=== PATIENT | female | born 1995 | race African-American/Black ===

== ENCOUNTER 2021-01-18 15:44 | Emergency (ER) | payer MEDICAID, SELFPAY ==
--- NOTE | 2021-01-18 15:46 | ED.ABDPAIN ---
HPI - Abdominal Pain General Chief Complaint: Abdominal Pain Stated Complaint: Abdominal pain on both sides Time Seen by Provider: 01/18/21 16:17 Source: patient and RN notes reviewed Mode of arrival: ambulatory Limitations: no limitations History of Present Illness HPI narrative: 26-year-old female presents concern for abdominal pain for 1 week. She reports a history of type II diabetes, ADHD, depression. She reports abdominal pain approximately 1 week, she reports right upper abdominal pain and bilateral lower quadrant abdominal pain. She reports intermittent diarrhea. Reports her blood sugars have been running high. She reports her diabetes is not well controlled. She denies nausea, vomiting, decreased appetite. Denies fever, body aches, chills, sweats. Denies rhinorrhea, nasal congestion, sore throat, cough. Reports she has an IUD, denies chance of . Denies dysuria, frequency, urgency, hematuria. Reports abdominal pain is a 4/10. She denies relieving or exacerbating factors. Reports she feels the strings of her IUD. MD elicited complaint: abdominal pain Related Data Home Medications Medication Instructions Recorded Confirmed aripiprazole [Abilify] 10 mg PO DAILY 01/18/21 01/18/21 metformin 1,000 mg PO BID 01/18/21 01/18/21 Allergies Allergy/AdvReac Type Severity Reaction Status Date / Time No Known Allergies Allergy Verified 01/18/21 15:57 Review of Systems Review of Systems: CONSTITUTIONAL: Denies malaise, chills, sweats, or fever. ENT: Denies rhinorrhea, congestion, sinus pain, otalgia or sore throat. CARDIOVASCULAR: Denies chest pain, palpitations, or edema. RESPIRATORY: Denies cough or dyspnea. GASTROINTESTINAL: Reports right upper quadrant, bilateral lower quadrant abdominal pain, diarrhea. Denies nausea, vomiting, bloody, or mucous stools. GENITOURINARY: Denies dysuria or hematuria. SKIN: Denies rash or itching. MUSCULOSKELETAL: Denies back pain, joint pain, or myalgia. NEUROLOGIC: Denies numbness, weakness, or headache. All systems reviewed & are unremarkable except as noted in HPI and below PMFSH Past Medical History Medical History (Updated 01/18/21 @ 16:42 by Yolanda Harris NP) ADHD Depression Comments At time of signature, agree with nursing past medical, surgical, social and family history. There is no relevant family history pertinent to the presenting complaint Exam Narrative: GENERAL: Well-appearing, well-nourished, and in no acute distress. HEAD: Normocephalic, atraumatic. EYES: PERRLA, conjunctivae clear, and EOMI. ENT: Nares clear. Mucous membranes moist. NECK: Supple. No lymphadenopathy CHEST: Speaks in full sentences. Clear to auscultation, breath sounds. No respiratory distress. HEART: Regular rate and rhythm. ABDOMEN: Bilateral lower quadrant tenderness. Soft, obese, nondistended. No guarding, rebound tenderness, or rigid. No pulsatilla masses. Bowel sounds present in all four quadrants. No organomegaly. Negative Washburn?s sign. No periumbilical tenderness. No Supra public tenderness or distension. No scars or surface trauma, stretch srinivasan noted. SKIN: Warm, dry, no rash. NEURO: Alert and oriented x3. PSYCH: Normal mood and affect Course Course Emergency Course: Patient is aware of the diagnostic capability at [facility]. Patient refuses transfer to emergency department at this time. Anticipatory guidance given. Patient agrees to follow-up as directed and is aware of reasons to seek care at the emergency department. Portions of this record may have been created with voice recognition software Vital Signs Vital signs: Vital Signs Temperature 99.4 F 01/18/21 15:55 Pulse Rate 113 H 01/18/21 15:55 Respiratory Rate 16 01/18/21 15:55 Blood Pressure 129/74 01/18/21 15:55 Pulse Oximetry 99 01/18/21 15:55 Temperature 99.4 F 01/18/21 15:55 Pulse Rate 113 H 01/18/21 15:55 Respiratory Rate 16 01/18/21 15:55 Blood Pressure 1
[2021-01-18 15:55] VITALS: BP 129/74; PULSE 113; RESP 16; TEMP 37.4; O2SAT 99
[2021-01-19 19:52] LABS: SARS-CoV-2 RNA PCR Negative
== END 2021-01-18 16:46 | disposition home or self-care (01) ==
PROVIDERS: Emergency Provider Nurse Practitioner
DX: R19.7 Diarrhea, unspecified (principal); E11.9 Type 2 diabetes mellitus without complications; Z79.84 Long term (current) use of oral hypoglycemic drugs; Z20.822 Contact with and (suspected) exposure to COVID-19
CPT/HCPCS: 81003; 81025; 87426; 99213; C9803; G0463; U0003; U0005

== ENCOUNTER 2021-10-28 08:38 | Emergency (ER) | payer BC, SELFPAY ==
[2021-10-28 08:48] VITALS: BP 138/68; PULSE 112; RESP 18; TEMP 37.2; O2SAT 99
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
[2021-10-28] MEDS: TETANUS,DIPHTHERIA,AC PERTUSSIS ADULT (0.5 ML) BOOSTRIX IM (09:24)
== END 2021-10-28 09:40 | disposition home or self-care (01) ==
PROVIDERS: Emergency Provider Nurse Practitioner; PCP Nurse Practitioner Family
DX: S01.531A Puncture wound without foreign body of lip, initial encounter (principal); V68.6XXA Passenger in heavy transport vehicle injured in noncollision transport accident in traffic accident, initial encounter; Z23 Encounter for immunization; E11.9 Type 2 diabetes mellitus without complications; Z79.84 Long term (current) use of oral hypoglycemic drugs; F32.A Depression, unspecified
CPT/HCPCS: 90471; 90715; 99212; G0463

== ENCOUNTER 2022-01-30 09:49 | Emergency (ER) | payer BC, SELFPAY ==
[2022-01-30 09:54] VITALS: BP 127/65; PULSE 94; RESP 16; TEMP 37; O2SAT 100
--- NOTE | 2022-01-30 09:55 | ED.URI ---
HPI - URI/Sore Throat General Chief Complaint: Upper Respiratory Infection Stated Complaint: sore throat Time Seen by Provider: 01/30/22 09:56 Source: patient and RN notes reviewed History of Present Illness HPI Narrative: Patient is a 27-year-old female who presents the urgent care with complaints of a sore throat and runny nose that started yesterday. Patient states her fianc? was diagnosed with strep throat 2 days ago. Patient denies of any fever, nausea, vomiting. No other acute complaints. No acute distress noted. Patient aware of the plan of care. Some parts of this dictation were generated by voice recognition software and may contain typographical and/or grammatical inaccuracies. Related Data Home Medications Medication Instructions Recorded Confirmed aripiprazole 10 mg tablet (Abilify) 10 mg PO DAILY 01/18/21 10/28/21 sertraline 25 mg tablet 25 mg PO DAILY 01/30/22 01/30/22 Allergies Allergy/AdvReac Type Severity Reaction Status Date / Time No Known Allergies Allergy Verified 01/30/22 10:00 Review of Systems Review of Systems: CONSTITUTIONAL: Denies fever, chills, or sweats. EYES: Denies visual changes, redness, or discharge. ENT: Reports of rhinorrhea and sore throat CARDIOVASCULAR: Denies chest pain, palpitations, or edema. RESPIRATORY: Denies cough or dyspnea. GASTROINTESTINAL: Denies abdominal pain, nausea, vomiting, or diarrhea. GENITOURINARY: Denies dysuria or hematuria. SKIN: Denies rash or itching. MUSCULOSKELETAL: Denies back pain, joint pain, or myalgia. NEUROLOGIC: Denies headache, numbness, or weakness. All other systems reviewed are negative, except as documented in HPI. [facility] Past Medical History Medical History (Updated 01/30/22 @ 10:13 by LUIS Guzman) ADHD Depression Diabetes Surgical History Surgical History No pertinent past surgical history Family History Family History Mother No pertinent family history Social History Social History Smoking status: Never smoker Alcohol intake: never Substance use: current Substance use type: marijuana Additional living arrangements comments: Lives with fiance Gender identity (if verbalized by the patient): Female Spiritual care concerns: No Comments At the time of my signature, I reviewed and agree with the nursing past medical, surgical, social, and family history. There is no relevant family history pertinent to the patient complaint. Exam Narrative: GENERAL: This is a well-nourished, well-developed patient, in no apparent distress. HEAD: normocephalic, atraumatic. EYES: PERRL. Sclera clear/white. Vision is grossly intact. EARS: External ears normal, auditory canals clear and without drainage, TMs normal without perforation. Hearing grossly intact. NOSE: External nose normal with no obvious nasal discharge, nares without redness, clear rhinorrhea. THROAT: Mucous membranes moist, posterior pharynx clear. Moderate postnasal drainage NECK: Neck supple, non-tender without lymphadenopathy CARDIOVASCULAR: Regular rate and rhythm without murmurs, gallops, or rubs. RESPIRATORY: Clear to auscultation. Breath sounds equal bilaterally. No wheezes, rales, or rhonchi. SKIN: warm, intact with no suspicious lesions or rash, good texture and turgor. NEURO: awake, alert, and oriented to person, place and time. There were no obvious focal neurologic abnormalities. EXTREMITIES: No clubbing, cyanosis, or edema. Course Course Level of Care: Express Care Visit Vital Signs Vital signs: Vital Signs Temperature 98.6 F 01/30/22 09:54 Pulse Rate 94 01/30/22 09:54 Respiratory Rate 16 01/30/22 09:54 Blood Pressure 127/65 01/30/22 09:54 Pulse Oximetry 100 01/30/22 09:54 Oxygen Delivery Room Air 01/30/22 09:54 [facility]
[2022-01-30 10:01] VITALS: BP 127/65; PULSE 94; RESP 16; TEMP 37; O2SAT 100
== END 2022-01-30 10:15 | disposition home or self-care (01) ==
PROVIDERS: Emergency Provider Nurse Practitioner Family; PCP Nurse Practitioner Family
DX: J02.9 Acute pharyngitis, unspecified (principal); F32.A Depression, unspecified; E11.9 Type 2 diabetes mellitus without complications
CPT/HCPCS: 87081; 87880; 99213; G0463

== ENCOUNTER 2022-02-01 15:27 | Emergency (ER) | payer BC, SELFPAY ==
[2022-02-01 15:33] VITALS: BP 124/77; PULSE 115; RESP 20; TEMP 37.2; O2SAT 94
--- NOTE | 2022-02-01 16:18 | ED.URI ---
HPI - URI/Sore Throat General Chief Complaint: Upper Respiratory Infection Stated Complaint: Shortness of Breath/Sore Throat Time Seen by Provider: 02/01/22 16:19 Source: patient and RN notes reviewed Mode of arrival: ambulatory Limitations: no limitations History of Present Illness HPI Narrative: 27-year-old female presents with concern for sore throat, cough, wheezing, nasal congestion, rhinorrhea, chills, body aches. Reports symptoms started yesterday, she was seen in this clinic on Saturday due to a strep throat exposure and had a negative test. She reports a history of bronchopulmonary dysplasia, type 2 diabetes. She reports she is between primary doctors. She reports she last used her [id number] inhaler about 2 hours ago. MD elicited complaint: cough and sore throat Related Data Home Medications Medication Instructions Recorded Confirmed aripiprazole 10 mg tablet (Abilify) 15 mg PO DAILY 01/18/21 02/01/22 sertraline 25 mg tablet 25 mg PO DAILY 01/30/22 02/01/22 Allergies Allergy/AdvReac Type Severity Reaction Status Date / Time No Known Allergies Allergy Verified 02/01/22 15:42 Review of Systems Review of Systems: CONSTITUTIONAL: Reports malaise, chills. Denies sweats, or fever. EYES: Denies visual changes, redness, or discharge. ENT: Reports rhinorrhea, congestion, and sore throat. Denies otalgia sinus pain CARDIOVASCULAR: Denies chest pain, palpitations, or edema. RESPIRATORY: Reports cough, dyspnea. GASTROINTESTINAL: Denies abdominal pain, nausea, vomiting, diarrhea SKIN: Denies rash or itching. MUSCULOSKELETAL: Reports myalgia. NEUROLOGIC: Denies headache. All systems reviewed & are unremarkable except as noted in HPI and below [facility] Past Medical History Medical History (Updated 02/01/22 @ 16:53 by Yolanda Harris NP) ADHD Depression Diabetes Surgical History Surgical History No pertinent past surgical history Family History Family History Mother No pertinent family history Social History Social History Smoking status: Never smoker Alcohol intake: never Substance use: current Substance use type: marijuana Additional living arrangements comments: Lives with fiance Gender identity (if verbalized by the patient): Female Spiritual care concerns: No Comments At time of signature, agree with nursing past medical, surgical, social and family history. There is no relevant family history pertinent to the presenting complaint Exam Narrative: GENERAL: Well-appearing, well-nourished, and in no acute distress. HEAD: Normocephalic EYES: PERRLA, conjunctivae clear ENT: Nares clear, turbinates edematous and erythematous, clear discharge. Mucous membranes moist. TM pearly laguna with dull light reflex bilaterally; no tragal tenderness. Oropharynx erythematous without lesions, postnasal drainage Tonsils not enlarged and without exudate, no drooling, no hoarseness, no trismus, uvula midline. NECK: Supple. No lymphadenopathy CHEST: Clear to auscultation, breath sounds equal. No wheezing, rhonchi, rales, or stridor. No respiratory distress, speaks in full sentences. HEART: Regular rate and rhythm. No murmur heard. SKIN: Warm, dry, no rash. NEURO: Alert and oriented x3. PSYCH: Normal mood and affect Course Course Emergency Course: Patient is aware of diagnosis, understands and agrees to treatment plan. Anticipatory guidance given. Patient agrees to follow-up as directed and is aware of reasons to seek care at the emergency department. Portions of this record may have been created with voice recognition software Level of Care: Express Care Visit Vital Signs Vital signs: Vital Signs Temperature 98.9 F 02/01/22 15:33 Pulse Rate 115 H 02/01/22 15:33 Respiratory Rate 20 02/01/22 15:33 Blood Press
[2022-02-01] MEDS: ALBUTEROL SULFATE NEB 2.5 MG/3 ML INH INHALATION (16:37)
[2022-02-01] MEDS: IPRATROPIUM BR 0.02% INH SOLN 0.5 MG/2.5 ML VIAL INHALATION (16:38)
== END 2022-02-01 17:33 | disposition home or self-care (01) ==
PROVIDERS: Emergency Provider Nurse Practitioner; PCP Nurse Practitioner Family
DX: J06.9 Acute upper respiratory infection, unspecified (principal); R05.9 Cough, unspecified; Z20.822 Contact with and (suspected) exposure to COVID-19; F12.90 Cannabis use, unspecified, uncomplicated; F32.A Depression, unspecified; E11.9 Type 2 diabetes mellitus without complications
CPT/HCPCS: 81025; 87081; 87426; 87880; 94640; 99213; C9803; G0463

== ENCOUNTER 2022-04-05 13:16 | Emergency (ER) | payer BC, SELFPAY ==
--- NOTE | 2022-04-05 13:21 | ED.URI ---
HPI - URI/Sore Throat General Chief Complaint: Upper Respiratory Infection Stated Complaint: Headache/Congestion Time Seen by Provider: 04/05/22 13:21 Source: patient and RN notes reviewed History of Present Illness HPI Narrative: Patient is a 27-year-old female who presents to urgent care with complaints of headache, congestion, 1 time vomiting, chills and sweats. Patient states it started last night and she had to leave work due to symptoms. Patient has not taken anything [id number] for her symptoms. No other acute complaints. No acute distress noted. Patient aware of the plan of care. Some parts of this dictation were generated by voice recognition software and may contain typographical and/or grammatical inaccuracies. Related Data Home Medications Medication Instructions Recorded Confirmed aripiprazole 10 mg tablet (Abilify) 15 mg PO DAILY 01/18/21 02/01/22 sertraline 25 mg tablet 25 mg PO DAILY 01/30/22 02/01/22 Allergies Allergy/AdvReac Type Severity Reaction Status Date / Time No Known Allergies Allergy Verified 02/01/22 15:42 Review of Systems Review of Systems: CONSTITUTIONAL: Reports chills and sweats EYES: Denies visual changes, redness, or discharge. ENT: Denies rhinorrhea, sore throat, or otalgia. reports of nasal congestion CARDIOVASCULAR: Denies chest pain, palpitations, or edema. RESPIRATORY: Denies cough or dyspnea. GASTROINTESTINAL: Denies abdominal pain, nausea, vomiting, or diarrhea. GENITOURINARY: Denies dysuria or hematuria. SKIN: Denies rash or itching. MUSCULOSKELETAL: Denies back pain, joint pain. Reports body aches NEUROLOGIC: Reports of headache All other systems reviewed are negative, except as documented in HPI. [facility] Past Medical History Medical History (Updated 04/05/22 @ 13:54 by LUIS Guzman) ADHD Depression Diabetes Surgical History Surgical History No pertinent past surgical history Family History Family History Mother No pertinent family history Social History Social History Smoking status: Never smoker Alcohol intake: never Substance use: current Substance use type: marijuana Additional living arrangements comments: Lives with fiance Gender identity (if verbalized by the patient): Female Spiritual care concerns: No Comments At the time of my signature, I reviewed and agree with the nursing past medical, surgical, social, and family history. There is no relevant family history pertinent to the patient complaint. Exam Narrative: GENERAL: This is a well-nourished, well-developed patient, in no apparent distress. HEAD: normocephalic, atraumatic. EYES: PERRL. Sclera clear/white. Vision is grossly intact. EARS: External ears normal, auditory canals clear and without drainage, TMs normal without perforation. Hearing grossly intact. NOSE: External nose normal with no obvious nasal discharge, nares without redness, clear rhinorrhea. THROAT: Mucous membranes moist, posterior pharynx clear. mild erythema to posterior pharynx with moderate postnasal drainage. NECK: Neck supple, non-tender without lymphadenopathy CARDIOVASCULAR: Regular rate and rhythm without murmurs, gallops, or rubs. RESPIRATORY: Clear to auscultation. Breath sounds equal bilaterally. No wheezes, rales, or rhonchi. GASTROINTESTINAL: Abdomen soft, non-tender, nondistended. SKIN: warm, intact with no suspicious lesions or rash, good texture and turgor. NEURO: awake, alert, and oriented to person, place and time. There were no obvious focal neurologic abnormalities. EXTREMITIES: No clubbing, cyanosis, or edema. Course Course Level of Care: Express Care Visit Vital Signs Vital signs: Vital Signs Temperature 98.2 F 04/05/22 13:24 Pulse Rate 101 H 04/05/22 13:24 Respira
[2022-04-05 13:24] VITALS: BP 132/78; PULSE 101; RESP 16; TEMP 36.8; O2SAT 99
== END 2022-04-05 14:01 | disposition home or self-care (01) ==
PROVIDERS: Emergency Provider Nurse Practitioner Family
DX: J11.1 Influenza due to unidentified influenza virus with other respiratory manifestations (principal); F90.9 Attention-deficit hyperactivity disorder, unspecified type; E11.9 Type 2 diabetes mellitus without complications
CPT/HCPCS: 87804; 99213; G0463

== ENCOUNTER 2022-09-03 18:44 | Emergency (ER) | payer BC, SELFPAY ==
[2022-09-03 18:48] VITALS: BP 129/75; PULSE 128; RESP 20; TEMP 37.3; O2SAT 93
--- NOTE | 2022-09-03 18:48 | ED.URI ---
HPI - URI/Sore Throat General Chief Complaint: Upper Respiratory Infection Stated Complaint: Chest Pain Time Seen by Provider: 09/03/22 18:48 Source: patient and RN notes reviewed History of Present Illness HPI Narrative: Patient is a 27-year-old female who presents to urgent care with complaints of chest tightness, shortness of breath, cough and nasal drainage. Patient states that symptoms started on Saturday and seemed to have worsen. Patient also reports of low-grade fever and wheezing. States that she took extra-strength Tylenol for the fever. States that she has a history of asthma but does not have an inhaler. No other acute complaints. No acute distress noted. Patient aware of the plan of care. Some parts of this dictation were generated by voice recognition software and may contain typographical and/or grammatical inaccuracies. Related Data Home Medications Medication Instructions Recorded Confirmed aripiprazole 10 mg tablet (Abilify) 15 mg PO DAILY 01/18/21 09/03/22 sertraline 25 mg tablet 25 mg PO DAILY 01/30/22 09/03/22 Allergies Allergy/AdvReac Type Severity Reaction Status Date / Time No Known Allergies Allergy Verified 09/03/22 18:56 Review of Systems Review of Systems: CONSTITUTIONAL: Denies fever, chills, or sweats. EYES: Denies visual changes, redness, or discharge. ENT: Denies rhinorrhea, congestion, sore throat, or otalgia. CARDIOVASCULAR: Denies chest pain, palpitations, or edema. RESPIRATORY: Reports of chest congestion, cough, shortness of breath, wheezing GASTROINTESTINAL: Denies abdominal pain, nausea, vomiting, or diarrhea. GENITOURINARY: Denies dysuria or hematuria. SKIN: Denies rash or itching. MUSCULOSKELETAL: Denies back pain, joint pain, or myalgia. NEUROLOGIC: Denies headache, numbness, or weakness. All other systems reviewed are negative, except as documented in HPI. [facility] Past Medical History Medical History (Updated 09/03/22 @ 19:13 by LUIS Guzman) ADHD Depression Diabetes Surgical History Surgical History No pertinent past surgical history Family History Family History Mother No pertinent family history Social History Social History Smoking status: Never smoker Alcohol intake: never Substance use: current Substance use type: marijuana Additional living arrangements comments: Lives with fiance Gender identity (if verbalized by the patient): Female Spiritual care concerns: No Comments At the time of my signature, I reviewed and agree with the nursing past medical, surgical, social, and family history. There is no relevant family history pertinent to the patient complaint. Exam Narrative: GENERAL: This is a well-nourished, well-developed patient, in no apparent distress. HEAD: normocephalic, atraumatic. EYES: PERRL. Sclera clear/white. Vision is grossly intact. EARS: External ears normal, auditory canals clear and without drainage, TMs normal without perforation. Hearing grossly intact. NOSE: External nose normal with no obvious nasal discharge, nares without redness, clear rhinorrhea. THROAT: Mucous membranes moist, posterior pharynx clear. Moderate postnasal drainage NECK: Neck supple CARDIOVASCULAR: Regular rate and rhythm RESPIRATORY: Expiratory wheezes to bilateral lower lobes, slight audible wheezing. Wet cough noted on exam SKIN: warm, intact with no suspicious lesions or rash, good texture and turgor. NEURO: awake, alert, and oriented to person, place and time. There were no obvious focal neurologic abnormalities. EXTREMITIES: No clubbing, cyanosis, or edema. Course Course Level of Care: Express Care Visit Vital Signs Vital signs: Vital Signs Temperature 99.1 F 09/03/22 18:48 Pulse Rate 128 H 09/03/22 18:48 Respiratory
== END 2022-09-03 19:15 | disposition home or self-care (01) ==
PROVIDERS: Emergency Provider Nurse Practitioner Family; PCP Nurse Practitioner Family
DX: J40 Bronchitis, not specified as acute or chronic (principal); F32.A Depression, unspecified; E11.9 Type 2 diabetes mellitus without complications; F12.90 Cannabis use, unspecified, uncomplicated
CPT/HCPCS: 99213; G0463

== ENCOUNTER 2022-10-27 11:06 | Emergency (ER) | payer BC, SELFPAY ==
[2022-10-27 11:10] VITALS: BP 122/67; PULSE 91; RESP 16; TEMP 36.5; O2SAT 100
[2022-10-27 11:17] LABS: Glucose Point of Care 244 mg/dl (65-105)
[2022-10-27 11:22] VITALS: BP 122/67; PULSE 91; RESP 16; TEMP 36.5; O2SAT 100
--- NOTE | 2022-10-27 11:35 | ED.GENADULT ---
HPI - General Adult General Chief complaint: Headache Stated complaint: Blood Sugar Problem Source: patient Mode of arrival: ambulatory Limitations: no limitations History of Present Illness HPI narrative: Patient presents requesting a referral to see a primary care provider. She indicates yesterday while working at [employer] she developed a headache and had 1 episode of vomiting. She informed her employer that she was diabetic and they checked her blood sugar, with reading over 300. She states she ran out of metformin several years ago and was hoping to restart. She continues to have a frontal headache, described as ?throbbing?, rated 4/10 severity. No other neurological symptoms. No nausea. Denies additional symptoms. Related Data Home Medications Medication Instructions Recorded Confirmed aripiprazole 10 mg tablet (Abilify) 20 mg PO DAILY 01/18/21 10/27/22 sertraline 25 mg tablet 75 mg PO DAILY 01/30/22 10/27/22 Allergies Allergy/AdvReac Type Severity Reaction Status Date / Time No Known Allergies Allergy Verified 10/27/22 11:21 Review of Systems Review of Systems: CONSTITUTIONAL: Denies fever, chills, or sweats. EYES: Denies visual changes, redness, or discharge. ENT: Denies rhinorrhea, congestion, sore throat, or otalgia. CARDIOVASCULAR: Denies chest pain, palpitations, or edema. RESPIRATORY: Denies cough or dyspnea. GASTROINTESTINAL: Reports nausea yesterday with one episode of vomiting. Denies abdominal pain or diarrhea. GENITOURINARY: Denies dysuria or hematuria. SKIN: Denies rash or itching. MUSCULOSKELETAL: Denies back pain, joint pain, or myalgia. NEUROLOGIC: Reports headache. Denies numbness, dizziness, or weakness. PSYCHIATRIC: Denies anxiety or depression. [facility] Past Medical History Medical History ADHD Depression Diabetes Surgical History Surgical History No pertinent past surgical history Family History Family History Mother No pertinent family history Social History Social History Smoking status: Never smoker Alcohol intake: never Substance use: current Substance use type: marijuana Additional living arrangements comments: Lives with fiance Gender identity (if verbalized by the patient): Female Spiritual care concerns: No Exam Narrative: GENERAL: Well-appearing, well-nourished, and in no acute distress. HEAD: Normocephalic, atraumatic. EYES: PERRLA and EOMI. ENT: Nares clear, no rhinorrhea or epistaxis. Mucous membranes moist. Oropharynx without tonsillar hypertrophy exudate or other lesions. Bilateral TMs pearly [place] nonbulging NECK: Supple. No adenopathy or masses. No carotid bruits or JVD CHEST: Clear to auscultation. No respiratory distress. No wheezes rales or rhonchi HEART: Regular rate and rhythm. No murmur heard. Normal peripheral pulses. ABDOMEN: Soft, nontender, nondistended, normal active bowel sounds. EXTREMITIES: Normal range of motion. No edema. SKIN: Warm, dry, no rash. NEURO: No focal deficits. Alert and oriented x3. PSYCH: Normal mood and affect. Course Course Emergency Course: This is a 27-year-old female who presented requesting a referral for a primary care provider. Contact information provided. BS here 244. Will dc with metformin. Neurologically intact on exam. Follow-up with primary provider. Go to the ER for blood sugars over 300. Level of Care: Express Care Visit Vital Signs Vital signs: Vital Signs Temperature 36.5 C 10/27/22 11:10 Pulse Rate 91 10/27/22 11:10 Respiratory Rate 16 10/27/22 11:10 Blood Pressure 122/67 10/27/22 11:10 Pulse Oximetry 100 10/27/22 11:10 Oxygen Delivery Room Air 10/27/22 11:10 Temperature 36.5 C 10/27/22 11:22 Puls
== END 2022-10-27 11:29 | disposition home or self-care (01) ==
PROVIDERS: Emergency Provider Nurse Practitioner; PCP Nurse Practitioner Family
DX: E11.65 Type 2 diabetes mellitus with hyperglycemia (principal); F32.A Depression, unspecified
CPT/HCPCS: 82948; 99213; G0463

== ENCOUNTER 2023-11-14 16:48 | Emergency (ER) | payer MEDICAID, SELFPAY ==
[2023-11-14 16:57] VITALS: BP 133/78; PULSE 98; RESP 16; TEMP 36.3; O2SAT 99
--- NOTE | 2023-11-14 17:29 | ED.GENADULT ---
HPI - General Adult General Chief complaint: Recheck/Abnormal Lab/Rx Stated complaint: test Time Seen by Provider: 11/14/23 17:27 Source: patient and RN notes reviewed Mode of arrival: ambulatory Limitations: no limitations History of Present Illness HPI narrative: Patient presents today requesting a bedside urine test. States she took 2 home test today and believe she may see faint lines and wanted confirmation. She has a Mirena IUD which has been in for 4 years. She does not have menstrual cycles. Related Data Allergies Allergy/AdvReac Type Severity Reaction Status Date / Time No Known Allergies Allergy Verified 10/27/22 11:21 Review of Systems Review of Systems: CONSTITUTIONAL: Denies body aches, fever, chills, or sweats. EYES: Denies visual changes, redness, or discharge. ENT: Denies rhinorrhea, congestion, sore throat, or otalgia. CARDIOVASCULAR: Denies chest pain, palpitations, or edema. RESPIRATORY: Denies cough or dyspnea. GASTROINTESTINAL: Denies abdominal pain, nausea, vomiting, or diarrhea. GENITOURINARY: Denies dysuria or hematuria. SKIN: Denies rash, itching, or wounds. MUSCULOSKELETAL: Denies back pain, joint pain, or myalgia. NEUROLOGIC: Denies headache, numbness, tingling, or weakness. PSYCH: Denies depression or anxiety. [facility] Past Medical History Medical History ADHD Depression Diabetes Surgical History Surgical History No pertinent past surgical history Family History Family History Mother No pertinent family history Social History Social History Smoking status: Never smoker Alcohol intake: never Substance use: current Substance use type: marijuana Additional living arrangements comments: Lives with fiance Gender identity (if verbalized by the patient): Female Spiritual care concerns: No Comments At time of signature, I have reviewed and agree with nursing past medical, surgical, social and family history unless otherwise noted. Please see nursing chart for further information. There is no relevant family history pertinent to the presenting complaint Exam Narrative: GENERAL: Well-appearing, well-nourished, and in no acute distress. HEAD: Normocephalic, atraumatic. EYES: EOMI. No redness or drainage. Conjunctivae normal. ENT: Mucous membranes pink and moist. NECK: Normal AROM. CHEST: No respiratory distress. EXTREMITIES: Normal range of motion. No edema. SKIN: Warm, dry, no rash. Capillary refill normal. Normal skin turgor. NEURO: No focal deficits. Alert and oriented x3. Gait steady. PSYCH: Normal affect. No signs of depression or anxiety. Course Course Level of Care: Express Care Visit Vital Signs Vital signs: Vital Signs Temperature 97.4 F L 11/14/23 16:57 Pulse Rate 98 11/14/23 16:57 Respiratory Rate 16 11/14/23 16:57 Blood Pressure 133/78 11/14/23 16:57 Pulse Oximetry 99 11/14/23 16:57 Oxygen Delivery Room Air 11/14/23 16:57 Temperature 97.4 F L 11/14/23 16:57 Pulse Rate 98 11/14/23 16:57 Respiratory Rate 16 11/14/23 16:57 Blood Pressure 133/78 11/14/23 16:57 Pulse Oximetry 99 11/14/23 16:57 Oxygen Delivery Room Air 11/14/23 16:57 Reviewed Medical Decision Making MDM Narrative Medical decision making narrative: Patient's urine test is negative. Discussed results with her. Also conveyed to her that her Mirena IUD is good for 8 years. Differential Diagnosis Differential Diagnosis: Positive test, negative test Vital Signs Vital Signs: Vital Signs Temperature 97.4 F L 11/14/23 16:57 Pulse Rate 98 11/14/23 16:57 Respiratory Rate 16 11/14/23 16:57 Blood Pressure 133/78 0
== END 2023-11-14 17:35 | disposition home or self-care (01) ==
PROVIDERS: Emergency Provider Nurse Practitioner
DX: Z32.02 Encounter for pregnancy test, result negative (principal); F12.90 Cannabis use, unspecified, uncomplicated; E11.9 Type 2 diabetes mellitus without complications
CPT/HCPCS: 81025; 99212; G0463